=== PATIENT | male | born 1945 | race Caucasian/White ===

== ENCOUNTER 2020-03-10 08:56 | Observation (INO) | payer OTHER ==
[~2020-03-10] VITALS: Ht 182.9 cm; Wt 100.2 kg
[2020-03-10] MEDS ORDERED: ONDANSETRON HCL INJ 2MG/ML 2ML 2 MG/ML VIAL IV STA (09:06)
[2020-03-10] MEDS ORDERED: MORPHINE SULFATE INJ 4 MG/ML INJ 1ML IV STA (09:06)
[2020-03-10] MEDS ORDERED: LABETALOL HCL 5 MG/ML 20ML VIAL IV STA (09:06)
[2020-03-10] MEDS ORDERED: ASPIRIN 81 MG CHEW TAB PO ONE (09:15)
[2020-03-10] MEDS ORDERED: FLUTICASONE PRO16 GM (09:22)
[2020-03-10] MEDS ORDERED: KLOR-CON M2020 MEQ (09:22)
[2020-03-10] MEDS ORDERED: CHLORTHALIDONE25 MG PO (09:23)
[2020-03-10] MEDS ORDERED: OMEPRAZOLE40 MG PO (09:47)
[2020-03-10] MEDS ORDERED: LISINOPRIL10 MG PO (09:47)
[2020-03-10] MEDS ORDERED: FINASTERIDE5 MG PO (09:47)
[2020-03-10] MEDS ORDERED: ASPIR 8181 MG PO (09:47)
[2020-03-10] MEDS ORDERED: ATORVASTATIN CA10 MG PO (09:47)
[2020-03-10] MEDS ORDERED: TERAZOSIN HCL5 MG PO (09:47)
[2020-03-10 09:57] LABS: BASOPHILS % 0.2 % (0.0-1.0); EOSINOPHILS # (AUTO) 0.2 (0.0-0.4); EOSINOPHILS % 2.1 % (0.0-6.0); HEMATOCRIT 43.2 % (38.2-49.6); HEMOGLOBIN 14.9 g/dL (14.0-18.0); LYMPHOCYTES # (AUTO) 1.6 (1.0-3.2); LYMPHOCYTES % 17.1 % (18.0-39.1); MEAN CORPUSCULAR HGB CONC 34.5 g/dL (31-35); MONOCYTES # (AUTO) 1.1 (0.2-0.8); MONOCYTES % 11.7 % (4.4-11.3); NEUTROPHILS # (AUTO) 6.4 (2.1-6.9); NEUTROPHILS % 68.5 % (38.7-80.0); PLATELET COUNT 219 x10e3/uL (140-360); RED CELL DISTRIBUTION WIDTH 12.2 % (11.7-14.4)
[2020-03-10 10:26] LABS: ALBUMIN 3.8 g/dL (3.5-5.0); ALBUMIN/GLOBULIN RATIO 1.1 (0.8-2.0); ANION GAP 15.4 mmol/L (8-16); CREATININE, SERUM 1.25 mg/dL (0.72-1.25); MAGNESIUM 1.5 MG/DL (1.3-2.1); POTASSIUM 3.4 mmol/L (3.5-5.1)
[2020-03-10 10:29] LABS: PARTIAL THROMBOPLASTIN TIME 28.4 seconds (23.8-35.5)
[2020-03-10 10:32] LABS: CREATINE KINASE MB 1.2 ng/mL (0-5.0)
[2020-03-10] MEDS ORDERED: SODIUM CHLORIDE 0.9% 1000ML 1,000 ML IV STA (10:41)
--- NOTE | 2020-03-10 10:43 | Diagnostic Imaging Report ---
EXAMINATION: CHEST SINGLE (PORTABLE) INDICATION: Chest pain. COMPARISON: None FINDINGS: TUBES and LINES: None. LUNGS: Lungs are well inflated. There are bibasilar subsegmental atelectasis. There is no evidence of pneumonia or pulmonary edema. PLEURA: No pleural effusion or pneumothorax. HEART AND MEDIASTINUM: The cardiomediastinal silhouette is unremarkable. There is a wall stent within the aortic arch and proximal descending aorta. BONES AND SOFT TISSUES: No acute osseous lesion. Soft tissues are unremarkable. UPPER ABDOMEN: No free air under the diaphragm. IMPRESSION: Bibasilar subsegmental atelectasis. Signed by: Dr. Ene Lynch M.D. on 03/10/2020 10:39 AM
[2020-03-10 10:54] LABS: INR 0.82; PROTHROMBIN TIME 11.8 seconds (11.9-14.5)
[2020-03-10] MEDS ORDERED: ONDANSETRON HCL INJ 2MG/ML 2ML 2 MG/ML VIAL IV PRN (11:00)
--- OUTSIDE RECORDS SUMMARY | 2020-03-10 11:08 | XMS REPORT | Continuity of Care Document ---
Author Author [facility] Organization [facility] Address [address] [place] [id number] Phone Unavailable Care Team Providers Care Haul Cane Brakeman Name Role Phone Swetha CHANEL Attphys Unavailable Problems This patient has no known problems. Allergies, Adverse Reactions, Alerts This patient has no known allergies or adverse reactions. Medications This patient has no known medications. Procedures This patient has no known procedures. Results Test Description Test Time Test Comments Results Result Comments Source CHEST SINGLE (PORTABLE) 2020-03-10 10:30:00 [facility] [address] [place] [address] Patient Name: NIKKI GONZALES MR #: [id number] : 1945 Age/Sex: 74/M Req #: [id number] Adm Physician: Ordered by: DAYA CHANEL MD Report #: [id number] Location: ER Room/Bed: Procedure: [id number] DX/CHEST SINGLE (PORTABLE) Exam Date: 03/10/20 Exam Time: 1005 REPORT STATUS: Signed EXAMINATION: CHEST SINGLE (PORTABLE) INDICATION: Chest pain. COMPARISON: None FINDINGS: TUBES and LINES: None. LUNGS: Lungs are well inflated. There are bibasilar subsegmental atelectasis. There is no evidence of pneumonia or pulmonary edema. PLEURA: No pleural effusion or pneumothorax. HEART AND MEDIASTINUM: The cardiomediastinal silhouette is unremarkable. There is a wall stent within the aortic arch and proximal descending aorta. BONES AND SOFT TISSUES: No acute osseous lesion. Soft tissues are unremarkable. UPPER ABDOMEN: No free air under the diaphragm. IMPRESSION: Bibasilar subsegmental atelectasis. Signed by: Dr. Ene Hanson M.D. on 03/10/2020 10:39 AM Dictated By: TYRONE HANSON MD, MD 1039 Transcribed By: ASHLEY on 03/10/20 1039 COPY TO: DAYA CHANEL MD
--- NOTE | 2020-03-10 11:21 | Emergency Department Note ---
History of Present Illnes History of Present Illness Chief Complaint: Chest Pain History of Present Illness This is a 74 year old male C/O ACHY CP THAT WRAPS AROUND UPPER TORSO TO BACK SINCE EARLY Sat NOT GOING ANYWHERE ELSE DENIES SOB DENIES PEREZ DENIES JAW PAIN DENIES RINGING IN EARS DENIES ABD PAIN DENIES N/V MD IN ROOM DURING TRIAGE STATES HX OF [place] AND STENTS STATES HE SMOKES 1/2 PACK OF CIGARETTES/DAY AND HAS 1 SHOT OF ALCOHOL/DAY. Historian: Patient Arrival Mode: Car Lacquerer Required: No Onset (how long ago): day(s) (1) Location: CHEST Quality: PAIN Radiation: Reports back Severity: severe Onset quality: gradual Timing of current episode: constant Progression: waxing and waning Chronicity: new Context: Denies recent illness Relieving factors: none Exacerbating factors: none Associated symptoms: Reports denies other symptoms Treatments prior to arrival: none Past Medical/Family History Physician Review I have reviewed the patient's past medical and family history. Any updates have been documented here. Past Medical History Recent Fever: No Clinical Suspicion of Infectio: No New/Unexplained Change in Ment: No Past Medical History: Hypertension, [place], Anxiety, Hyperlipedemia Other Medical History: ENLARGED PROSTATE Past Surgical History: Cholecysctectomy, Knee Replacement Other Surgery: TONSILLECTOMY RODS IN RIGHT LEG PLATES IN RIGHT WRIST AND FOREARM Social History Smoking Cessation: Current every day smoker Counseling Performed: No Alcohol Use: Daily Any Illegal Drug Use: No TB Exposure/Symptoms: No Physically hurt or threatened: No Family History Family history of heart diseas: No Other Last Tetanus: UTD Any Pre-Existing Lines (PICC,: No Is patient up to date on immun: Yes Last Flu: UTD Last Pneumovax: UTD Review of Systems Review of Systems Constitutional: Reports no symptoms EENTM: Reports no symptoms Cardiovascular: Reports chest pain Respiratory: Reports no symptoms Gastrointestinal: Reports no symptoms Genitourinary: Reports no symptoms Musculoskeletal: Reports no symptoms Integumentary: Reports no symptoms Neurological: Reports no symptoms Psychological: Reports no symptoms Endocrine: Reports no symptoms Hematological/Lymphatic: Reports no symptoms Physical Exam Related Data Allergies: Coded Allergies: Penicillins (Verified Allergy, Unknown, RASH, 03/10/20) Triage Vital Signs Vital Signs Date Time Temp Pulse Resp B/P (MAP) Pulse Ox O2 Delivery O2 Flow Rate FiO2 03/10/20 09:11 98.3 71 18 185/101 97 Vital signs reviewed: Yes Physical Exam CONSTITUTIONAL Constitutional: Reports well-developed, Reports well-nourished HENT HENT: Reports normocephalic, Reports atraumatic, Reports oropharynx clear/moist, Reports nose normal HENT L/R: Reports left ext ear normal, Reports right ext ear normal EYES Eyes: Reports PERRL, Reports conjunctivae normal NECK Neck: Reports ROM normal PULMONARY Pulmonary: Reports effort normal, Reports breath sounds normal CARDIOVASCULAR Cardiovascular: Reports regular rhythm, Reports heart sounds normal, Reports capillary refill normal, Reports normal rate GASTROINTESTINAL Abdominal: Reports soft, Reports nontender, Reports bowel sounds normal GENITOURINARY Genitourinary: Reports exam deferred SKIN Skin: Reports warm, Reports dry MUSCULOSKELETAL Musculoskeletal: Reports ROM normal NEUROLOGICAL Neurological: Reports alert, Reports oriented x 3, Reports no gross motor or sensory deficits PSYCHOLOGICAL Psychological: Reports mood/affect normal, Reports judgement normal Results Laboratory Result Diagram: 03/10/20 0909 03/10/20 0909 Laboratory Laboratory Tests Test 03/10/20 09:09 White Blood Count 9.39 x10e3/uL (4.8-10.8) Red Blood Count 4.80 x10e6/uL (4.3-5.7) Hemoglobin 14.9 g/dL (14.0-18.0) Hematocrit 43.2 % (38.2-49.6) Mean Corpuscular Volume 90.0 fL (81-99) Mean Corpuscular Hemoglobin 31.0 pg (28-32) Mean Corpuscular Hemoglobin Concent 34.5 g/dL (31-35) Red Cell Distribution Width 12.2 % (11.7-14.4) Platelet Count 219 x10e3/uL (140-360) Neutrophils (%) (Auto) 68.5 % (38.7-80.0) Lymphocytes (%) (Auto) 17.1 % (18.0-39.1) Monocytes (%) (Auto) 11.7 % (4.4-11.3) Eosinophils (%) (Auto) 2.1 % (0.0-6.0) Basophils (%) (Auto) 0.2 % (0.0-1.0) Neutrophils # (Auto) 6.4 (2.1-6.9) Lymphocytes # (Auto) 1.6 (1.0-3.2) Monocytes # (Auto) 1.1 (0.2-0.8) Eosinophils # (Auto) 0.2 (0.0-0.4) Basophils # (Auto) 0.0 (0.0-0.1) Absolute Immature Granulocyte (auto 0.04 x10e3/uL (0-0.1) Prothrombin Time 11.8 seconds (11.9-14.5) Prothromb Time International Ratio 0.82 Activated Partial Thromboplast Time 28.4 seconds (23.8-35.5) Sodium Level 136 mmol/L (136-145) Potassium Level 3.4 mmol/L (3.5-5.1) Chloride Level 101 mmol/L (98-107) Carbon Dioxide Level 23 mmol/L (22-29) Anion Gap 15.4 mmol/L (8-16) Blood Urea Nitrogen 11 mg/dL (7-26) Creatinine 1.25 mg/dL (0.72-1.25) Estimat Glomerular Filtration Rate 57 ML/MIN (60-) BUN/Creatinine Ratio 9 (6-25) Glucose Level 121 mg/dL (74-118) Calcium Level 9.0 mg/dL (8.4-10.2) Magnesium Level 1.5 MG/DL (1.3-2.1) Total Bilirubin 0.6 mg/dL (0.2-1.2) Aspartate Amino Transf (AST/SGOT) 17 IU/L (5-34) Alanine Aminotransferase (ALT/SGPT) 20 IU/L (0-55) Alkaline Phosphatase 105 IU/L (40-150) Creatine Kinase 74 IU/L (30-200) Creatine Kinase MB 1.20 ng/mL (0-5.0) Troponin I 0.024 ng/mL (0-0.300) B-Type Natriuretic Peptide 18.3 pg/mL (0-100) Total Protein 7.4 g/dL (6.5-8.1) Albumin 3.8 g/dL (3.5-5.0) Globulin 3.6 g/dL (2.3-3.5) Albumin/Globulin Ratio 1.1 (0.8-2.0) Lab results reviewed: Yes Imaging Imaging results reviewed: Yes Impressions EXAMINATION: CHEST SINGLE (PORTABLE) INDICATION: Chest pain. COMPARISON: None FINDINGS: TUBES and LINES: None. LUNGS: Lungs are well inflated. There are bibasilar subsegmental atelectasis. There is no evidence of pneumonia or pulmonary edema. PLEURA: No pleural effusion or pneumothorax. HEART AND MEDIASTINUM: The cardiomediastinal silhouette is unremarkable. There is a wall stent within the aortic arch and proximal descending aorta. BONES AND SOFT TISSUES: No acute osseous lesion. Soft tissues are unremarkable. UPPER ABDOMEN: No free air under the diaphragm. IMPRESSION: Bibasilar subsegmental atelectasis. Signed by: Dr. Ene Lynch M.D. on 03/10/2020 10:39 AM Imaging Comments RAD REPORTS NOT CROSSING OVER - I SPOKE WITH RADIOLOGIST - BILAT SEGMENTAL/SUBSEGMENTAL PE'S, ENDOVASC AO GRAFT LOOKS GOOD Diagnostics Tests Diagnostic test(s) reviewed: Yes Procedures 12 Lead ECG Interpretation ECG Interpretation : ECG: ECG 1 Lacquerer: Interpreted by ED physician Date: Mar 10, 2020 Time: 09:01 Prior ECG tracings: reviewed Rhythm: sinus rhythm (WITH 1ST DEGREE AV BLOCK) Rate: normal (75) QRS axis: left Conduction: left bundle branch block T wave inversion: I, aVL Other findings: LVH with strain Clinical Impression: abnormal ECG Assessment & Plan Medical Decision Making MDM CHEST PAIN RAD TO BACK AND H/O CAD WITH STENT AND "AORTIC ARTERY STENT" AFTER AN RETIREMENT - CHECK CBC, CHEM, ECG, CARDIAC ENZYMES, CT CHEST - DIFF DX INCLUDES STEMI/NSTEMI, AORTIC DISSECTION/ANEURYSM, NON-CARDIAC CP SUCH PNEUMONIA, LUNG MASS, R/O ELECTROLYTE ABNL Reassessment Reassessment ADMIT TO DR MILTON, CT CHEST STILL PENDING. ECG SENT TO DR KHOURY - FEELS IT IS LIKELY OLD LBBB - WILL SEE PT Assessment & Plan Final Impression: (1) Chest pain Depart Disposition: ADMITTED Last Vital Signs Date Time Temp Pulse Resp B/P (MAP) Pulse Ox O2 Delivery O2 Flow Rate FiO2 03/10/20 09:43 71 185/101 03/10/20 09:11 98.3 18 97 Home Meds Reported Medications Aspirin (ASPIR 81) 81 Mg Tablet., 81 MG PO DAILY 03/10/20 Finasteride (FINASTERIDE) 5 Mg Tablet, 5 MG PO DAILY, #30 TAB 03/10/20 Terazosin Hcl (TERAZOSIN HCL) 5 Mg Capsule, 10 MG PO DAILY, #30 CAP 03/10/20 Omeprazole (OMEPRAZOLE) 40 Mg Capsule.dr, 20 MG PO DAILY 03/10/20 Lisinopril (LISINOPRIL) 10 Mg Tablet, 40 MG PO DAILY, #30 TAB 03/10/20 Atorvastatin Calcium (ATORVASTATIN CALCIUM) 10 Mg Tablet, 20 MG PO 2100, #30 TAB 03/10/20 Chlorthalidone (CHLORTHALIDONE) 25 Mg Tablet 03/10/20 Fluticasone Propionate (FLUTICASONE PROPIONATE) 16 Gm Mize.susp 03/10/20 Potassium Chloride (KLOR-CON M20) 20 Meq Tabcr 03/10/20 Medications in the ED Morphine Sulfate 4 mg ONCE STAT IV Last administered on 03/10/20at 09:42; Admin Dose 4 MG; Start 03/10/20 at 09:06; Stop 03/10/20 at 10:28; Status DC Ondansetron HCl 4 mg ONCE STAT IV Last administered on 03/10/20at 09:42; Admin Dose 4 MG; Start 03/10/20 at 09:06; Stop 03/10/20 at 10:28; Status DC Aspirin 81 mg NOW ONCE PO Last administered on 03/10/20at 09:42; Admin Dose 81 MG; Start 03/10/20 at 09:15; Stop 03/10/20 at 10:28; Status DC Labetalol HCl 20 mg NOW STAT IV Last administered on 03/10/20at 09:43; Admin Dose 20 MG; Start 03/10/20 at 09:06; Stop 03/10/20 at 10:28; Status DC Sodium Chloride 1,000 ml @ 0 mls/hr Q0M STAT IV Last administered on 03/10/20at 10:42; Admin Dose 1,000 MLS/HR; Start 03/10/20 at 10:41; Stop 03/10/20 at 10:42; Status DC DAYA CHANEL MD Mar 10, 2020 11:21
[2020-03-10] MEDS ORDERED: ENOXAPARIN SODIUM INJ 100 MG/ML SYR SC SCH (12:45)
[2020-03-10] MEDS: FAMOTIDINE 20 MG/2 ML VIAL IV SCH ×2 (13:20→21:00)
--- NOTE | 2020-03-10 13:30 | NUR ---
{null, received patient from the ER via wheelchair, pt ambulated from wheelchair to bed, no s/s of distress noted. pt was oriented to room, call light within reach and instructed pt to call RN for help. friend/roommate is at the bedside }
[2020-03-10] MEDS ORDERED: Vitamin D PO (14:40)
[2020-03-10] MEDS ORDERED: CETIRIZINE HCL10 MG PO (14:49)
[2020-03-10] MEDS ORDERED: PROZAC10 MG PO (14:49)
[2020-03-10] MEDS ORDERED: POTASSIUM CHLO20 ME1 PO (14:49)
[2020-03-10] MEDS ORDERED: POTASSIUM BICARBONATE/CIT AC 20 MEQ TABLET.EFF PO ONE ×2 (15:45→22:45)
[2020-03-10 16:14] VITALS: BP 153/76
[2020-03-10 17:13] LABS: CREATINE KINASE MB 1.1 ng/mL (0-5.0)
[2020-03-10] MEDS: PANTOPRAZOLE SOD 40 MG TABEC PO SCH (17:29)
[2020-03-10] MEDS: FLUTICASONE PROPIONATE NASAL SPRAY NS SCH (17:29)
--- NOTE | 2020-03-10 17:51 | NUR ---
{null, Dr. Yeung at the bedside, gave verbal orders }
--- NOTE | 2020-03-10 19:56 | NUR ---
{null, Received change of shift report from AM nurse. Walking rounds completed. }
[2020-03-10 20:00] VITALS: BP 157/84
[2020-03-10] MEDS ORDERED: ATORVASTATIN 20 MG TAB PO SCH (21:00)
[2020-03-10] MEDS ORDERED: ATORVASTATIN 10 MG TAB PO SCH (21:00)
[2020-03-11] VITALS: BP 156/78
[2020-03-11] MEDS: RIVAROXABAN 15 MG TABLET PO SCH ×2 (01:30→13:44)
[2020-03-11 02:29] LABS: CREATINE KINASE MB 1.2 ng/mL (0-5.0)
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
[2020-03-11 04:00] VITALS: BP 137/67
--- NOTE | 2020-03-11 06:13 | NUR ---
{null, Patient up ambulating in room. No c/o at this time. }
[2020-03-11 06:55] LABS: BASOPHILS % 0.4 % (0.0-1.0); EOSINOPHILS # (AUTO) 0.2 (0.0-0.4); EOSINOPHILS % 2.7 % (0.0-6.0); LYMPHOCYTES # (AUTO) 1.9 (1.0-3.2); LYMPHOCYTES % 24.8 % (18.0-39.1); MEAN CORPUSCULAR HEMOGLOBIN 32.3 pg (28-32); MEAN CORPUSCULAR HGB CONC 34.2 g/dL (31-35); MEAN CORPUSCULAR VOLUME 94.3 fL (81-99); MONOCYTES # (AUTO) 0.9 (0.2-0.8); MONOCYTES % 11.8 % (4.4-11.3); NEUTROPHILS # (AUTO) 4.5 (2.1-6.9); PLATELET COUNT 189 x10e3/uL (140-360); RED BLOOD COUNT 4.03 x10e6/uL (4.3-5.7); RED CELL DISTRIBUTION WIDTH 12.7 % (11.7-14.4)
[2020-03-11 07:48] LABS: ALBUMIN 3.1 g/dL (3.5-5.0); ALBUMIN/GLOBULIN RATIO 0.9 (0.8-2.0); ANION GAP 11.5 mmol/L (8-16); CALCIUM 8.3 mg/dL (8.4-10.2); CHOL/HDL RATIO 2.9 (3.9-4.7); CREATININE, SERUM 1.27 mg/dL (0.72-1.25); POTASSIUM 3.5 mmol/L (3.5-5.1)
[2020-03-11 08:16] VITALS: BP 143/84
[2020-03-11 08:50] VITALS: BP 143/84
[2020-03-11] MEDS ORDERED: ASPIRIN 81 MG CHEW TAB PO SCH (09:00)
[2020-03-11] MEDS ORDERED: CHLORTHALIDONE 25 MG TAB PO SCH (09:00)
[2020-03-11] MEDS ORDERED: FLUOXETINE HCL 10 MG CAP PO SCH (09:00)
[2020-03-11] MEDS ORDERED: LISINOPRIL 10 MG TAB PO SCH (09:00)
[2020-03-11] MEDS ORDERED: FINASTERIDE 5 MG TAB PO SCH (09:00)
[2020-03-11] MEDS ORDERED: TERAZOSIN HCL 5 MG CAP PO SCH (09:00)
[2020-03-11] MEDS: PANTOPRAZOLE SOD 40 MG TABEC PO SCH (09:29)
[2020-03-11] MEDS: FAMOTIDINE 20 MG/2 ML VIAL IV SCH (09:29)
[2020-03-11] MEDS: FLUTICASONE PROPIONATE NASAL SPRAY NS SCH (09:30)
[2020-03-11 12:19] VITALS: BP 153/83
--- NOTE | 2020-03-11 14:20 | NUR ---
{null, Okay to d/c patient from Estelita Irwin's standpoint. }
[2020-03-11] MEDS ORDERED: XARELTO15 MG PO (15:18)
[2020-03-11 16:04] VITALS: BP 148/73
--- NOTE | 2020-03-11 16:30 | NUR ---
{null, Discharge education provided. Patient is to d/c to home. Verbalized understanding regarding follow-up visit with side panel padder in 1-2 weeks. PIV to left and right arm discontinued, catheter tip intact, occlusive dressing applied. Transported patient via wheelchair to private vehicle with all personal belongings taken. Denies chest pain. }
--- NOTE | 2020-03-12 04:51 | Discharge Summary ---
PRIMARY CARE PHYSICIAN: Dr. Burleson at [facility]. FINAL DISCHARGE DIAGNOSES: 1. Chest pain, ruled out acute coronary syndrome. 2. Bilateral pulmonary embolism. 3. Hypertension. 4. High cholesterol. 5. Hypokalemia. 6. Depression. 7. Benign prostatic hyperplasia. 8. Gastroesophageal reflux disease. 9. Seasonal allergies. CONSULTANTS: Dr. Yeung with Cardiology. PROCEDURES: None. HISTORY: Per HPI. HOSPITAL COURSE: This is a 74-year-old male with past medical history of hypertension, high cholesterol, seasonal allergies, depression, BPH, and GERD, presented to the ER with complaints of chest pain radiating to the back. Cardiac enzymes were negative. ACS was ruled out. CT imaging showed bilateral PE. Venous Doppler was done, echocardiogram with EF of 58%. He was started on blood thinners for treatment of PE. Monitored overnight and is cleared by Cardiology, so we will discharge home to follow up with PCP and Cardiology. PHYSICAL EXAMINATION: VITAL SIGNS: Temperature 97.7, pulse is 68, respirations 20, blood pressure 140/73, pulse ox is 93% on room air. GENERAL: No acute distress. HEENT: Normocephalic, atraumatic. LUNGS: Clear to auscultation. CARDIOVASCULAR: Regular rate and rhythm. GI: Soft and nontender. NEUROLOGIC: Alert, awake, and oriented x3. MUSCULOSKELETAL: Moves all extremities. SKIN: Dry. CONDITION AT DISCHARGE: Improved and stable. DISCHARGE MEDICATIONS: Please see medication reconciliation list. FOLLOWUP: Follow up with PCP and Cardiology in 1 to 2 weeks. compliance with anticoagulation. He will be on Xarelto 15 mg b.i.d. for 3 weeks, then 20 mg p.o. daily. TIME SPENT: Total discharge time is 33 minutes. Dictated by SETH Bobo Alexa Crooks MD MY/MODL /[id number] cc: Mesfin Burleson MD
--- NOTE | 2020-03-15 12:01 | Diagnostic Imaging Report ---
EXAM: CT ANGIOGRAM Chest, Abdomen and Pelvis WITHOUT and WITH contrast INDICATION: Chest pain to the back, history of endovascular repair ^AO PROTOCOL ^[id number] ^1120 COMPARISON: None. TECHNIQUE: Chest, abdomen and pelvis were scanned utilizing a multidetector helical scanner from the lung apex to the pubic symphysis before and after administration of IV contrast. Coronal and sagittal reformations were obtained. Routine protocol was performed. Scan was performed when during portal venous phase. IV CONTRAST: 150 mL of Omnipaque 300 ORAL CONTRAST: Water COMPLICATIONS: None RADIATION DOSE: Total DLP: 1990 mGy*cm Estimated effective dose: (DLP x 0.015 x size factor) mSv CTDIvol has been reviewed. It is below the limits set by the Radiation Protocol Committee (RPC). 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 No evidence of dissection or intramural hematoma. Status post endovascular repair of the descending thoracic aorta with endovascular stent graft. No residual aneurysm sac or dissection. No findings to suggest endoleak. There are mild atherosclerotic calcifications of the abdominal aorta without aneurysm or dissection. Celiac artery, superior mesenteric artery, inferior mesenteric artery and bilateral renal arteries are patent and normal in caliber. Infrarenal abdominal aorta measures 2.1 cm in diameter. Bilateral iliac and common femoral arteries are patent and normal in caliber. PULMONARY ARTERIES: Main pulmonary artery measures 2.8 cm in diameter. There are a few segmental and subsegmental filling defects in the bilateral pulmonary arteries. (There is a segmental filling defect in the superior segmental branch in the RLL. (image 65) there are a few additional subsegmental filling defects within the right upper lobe, right lower lobe and left upper lobe. LINES and TUBES: None. LUNGS AND AIRWAYS: Mild retained secretions within the left main bronchus. Central airways are otherwise patent. No focal consolidation. 4 mm nodule along the right minor fissure likely representing intrapulmonary lymph node. (See axial image 74). PLEURA: The pleural spaces are clear. HEART AND MEDIASTINUM: No mediastinal, hilar or axillary lymphadenopathy. The heart is normal in size.. There is no pericardial effusion. HEPATOBILIARY: Liver demonstrates normal attenuation. No focal hepatic lesions. No biliary ductal dilation. GALLBLADDER: Status post cholecystectomy. SPLEEN: No splenomegaly. PANCREAS: No focal masses or ductal dilatation. ADRENALS: No adrenal nodules KIDNEYS/URETERS: Kidneys enhance symmetrically. No hydronephrosis. 5.2 cm exophytic cyst arising from the lower pole of the right kidney. 9 mm cyst in the upper pole of left kidney. No solid renal mass. No stones. GI TRACT: No abnormal distention, wall thickening, or evidence of bowel obstruction. There are diverticula within the colon without evidence of diverticulitis. Appendix is normal. PELVIC ORGANS/BLADDER: Unremarkable. LYMPH NODES: No lymphadenopathy. VESSELS: Unremarkable. PERITONEUM / RETROPERITONEUM: No free air or fluid. BONES: There are degenerative changes in the lumbar spine. SOFT TISSUES: Unremarkable. IMPRESSION: 1. Bilateral acute segmental and subsegmental pulmonary emboli. 2. Status post endovascular repair of descending thoracic aorta. Mild ectasia of the ascending thoracic aorta. Otherwise no aneurysm, dissection or intramural hematoma. 3. Colonic diverticulosis without CT evidence of acute diverticulitis. D/W Dr. Medrano at 12:45 PM. Signed by: Josesito Menon MD on 03/10/2020 12:45 PM
== END 2020-03-11 16:12 | disposition home or self-care (01) ==
LOC: ER 08:56 → ERHOLD 10:55 → MED/SURG3 13:29
PROVIDERS: ADMIT Internal Medicine; ATTEND Internal Medicine
DX: R07.89 Other chest pain (principal); I25.2 Old myocardial infarction; Z95.5 Presence of coronary angioplasty implant and graft; F17.210 Nicotine dependence, cigarettes, uncomplicated; I10 Essential (primary) hypertension; E78.5 Hyperlipidemia, unspecified; N40.0 Benign prostatic hyperplasia without lower urinary tract symptoms; K21.9 Gastro-esophageal reflux disease without esophagitis; F32.9 Major depressive disorder, single episode, unspecified; Z84.89 Family history of other specified conditions; Z88.0 Allergy status to penicillin; E87.6 Hypokalemia; J30.2 Other seasonal allergic rhinitis; I26.99 Other pulmonary embolism without acute cor pulmonale
CPT/HCPCS: 36415 ×2; 71045; 71275; 74174; 80053 ×2; 80061; 82550 ×2; 82553 ×2; 83735; 83880; 84484 ×2; 85025 ×2; 85610; 85730; 87635; 93005; 93306; 93970; 99284; G0378 ×2; J1650; J2270; J2405; J3490; J7030; S0164 ×2